=== PATIENT | female | born 1995 | race Caucasian/White ===

== ENCOUNTER 2018-01-11 10:57 | Emergency (ER) | payer OTHER, MEDICARE ==
[~2018-01-11] VITALS: Ht 170.2 cm; Wt 65.0 kg
[2018-01-11 11:00] VITALS: BP 126/68
[2018-01-11] MEDS ORDERED: LIDOcaine 1.5% w/epinephrine 1:200,000 5ml ampul IJ ONE (11:05)
[2018-01-11] MEDS ORDERED: TETanus/Pertussis (Acell)/Diphther VAC/PF (Tdap-Adult) 0.5ml syringe IM ONE (11:05)
[2018-01-11] MEDS ORDERED: LIDOcaine 1% w/epiNEPHrine 1:200,000 30ml vial IJ ONE (11:10)
== END 2018-01-11 12:44 | disposition home or self-care (01) ==
LOC: ER 10:58
DX: S91.012A Laceration without foreign body, left ankle, initial encounter (principal); S90.32XA Contusion of left foot, initial encounter; S90.02XA Contusion of left ankle, initial encounter; S60.512A Abrasion of left hand, initial encounter; V10.0XXA Pedal cycle driver injured in collision with pedestrian or animal in nontraffic accident, initial encounter; Y93.55 Activity, bike riding; Y92.413 State road as the place of occurrence of the external cause; Y99.9 Unspecified external cause status
CPT/HCPCS: 12001; 73610; 90471; 90715; 99283; J3490

== ENCOUNTER 2018-02-06 11:00 | Emergency (ER) | payer OTHER, MEDICARE ==
[~2018-02-06] VITALS: Ht 170.2 cm; Wt 66.7 kg
[2018-02-06 11:39] VITALS: BP 128/73
[2018-02-06] MEDS ORDERED: IBUP-1985 PO (13:56)
== END 2018-02-06 14:04 | disposition home or self-care (01) ==
LOC: ER 11:01
DX: M25.572 Pain in left ankle and joints of left foot (principal); M54.6 Pain in thoracic spine; Z79.899 Other long term (current) drug therapy
CPT/HCPCS: 99282